=== PATIENT | female | born 1975 | race Caucasian/White ===

== ENCOUNTER 2024-04-20 10:56 | Emergency (ER) | payer OTHER, SELFPAY ==
[2024-04-20 10:59] VITALS: BP 133/82; PULSE 86; RESP 15; TEMP 36.4; O2SAT 99; BMI 23.8
--- NOTE | 2024-04-20 11:19 | EKG12_ITS ---
Test Reason : GENERAL Blood Pressure : / mmHG Vent. Rate : 085 BPM Atrial Rate : 085 BPM P-R Int : 152 ms QRS Dur : 092 ms QT Int : 386 ms P-R-T Axes : 077 071 039 degrees QTc Int : 459 ms Normal sinus rhythm Normal ECG Confirmed by COLT SIMON, CYNTHIA ([id number]), index editor JESSICA KOVACS ([id number]) on 04/21/2024 10:18:44 AM Referred By: Confirmed By:CYNTHIA GREGORY MD
--- NOTE | 2024-04-20 11:19 | EX.ED.VIS.PS ---
HPI HPI - Psych History of Present Illness Chief Complaint: Mental Health Narrative Narrative: 48-year-old female presents with multiple somatic complaints but mainly with what her ears are perceiving as she states things sound warped. This has been ongoing for 6 years. She states that while she is having physical symptoms she is also having psychological problems and stress where her psychological pain is through the roof. However, she denies suicidal ideation, hallucinations, or homicidal ideation. She was able to walk here, and wants to see someone about her physical and psychological ailments as she feels they are intertwined. PFSH PFSH Allergy/AdvReac Type Severity Reaction Status Date / Time No Known Allergies Allergy Verified 04/20/24 11:03 Social History Smoking Status: Current every day smoker tobacco type: cigarettes ROS ROS ED ROS Narrative Constitutional: No fever, no chills. HEENT: No sore throat. No neck pain. No loss of vision. No rhinorrhea. Warped sense of hearing. Cardiovascular: No chest pain. No palpitations. No pedal edema. Respiratory: No cough, no shortness of breath. Abdominal: No abdominal pain. No nausea. No vomiting. Genitourinary: No dysuria. No hematuria. Musculoskeletal: No myalgias. No arthralgias. Neurologic: No headaches. No dizziness. No lightheadedness. Skin: No rash. No change in color. Psychiatric: No depression. No anxiety. EXAM Physical Exam Narrative Exam Narrative: Afebrile. Vital signs noted. HEENT: Normocephalic. Atraumatic. PERRL, EOMI. Neck soft and supple. No point tenderness or step off. Cardiovascular: Regular rate and rhythm. No murmurs, rubs, or gallops appreciated. Respiratory: No tachypnea. Lungs clear to auscultation bilaterally. Gastrointestinal: Abdomen soft, nontender, with normoactive bowel sounds. No rebound or guarding. Neurological: Awake. Alert. Nonfocal, nonlateralizing. Skin: No rash. Normal color. No pallor. Musculoskeletal: No pedal edema. Full range of motion extremities. Psychiatric: Mild flight of ideas. No suicidal ideation, no homicidal ideation. No apparent internal stimulation. Const Vital Signs: 04/20/24 10:59 Temperature 97.6 F L Temperature Source Temporal Pulse Rate 86 Respiratory Rate 15 Blood Pressure 133/82 H Blood Pressure Mean 99 Pulse Ox 99 Oxygen Delivery Method Room Air MDM MDM MDM Narrative Medical decision making narrative: Patient's problems have been ongoing for 6 years. She relates history where she has had MRIs done of her brain, and describes that she was supposed to be set up with a counselor in the past. She told the diesel mechanic helper and review of the triage note she is stuck here and staying in a hotel. Given her flight of ideas and her difficulty in explaining her symptoms, medical clearance labs will be obtained. Will feel she needs a sitter, for that she is necessarily meeting any criteria for 72-hour psychiatric hold. I reviewed her laboratory work and she has normal white count of 9.2, hemoglobin normal at 14.3, platelet 260. Of significance on her CMP is potassium low at 3.2 which will be replaced orally. Glucose is elevated at 136 but she has normal anion gap of 6. LFTs are grossly unremarkable. Serum is negative. At this point in time, I feel she is medically cleared for evaluation by crisis. Patient is in stable condition. After evaluation, and discussion with counselor, was not felt that she needed emergent psychiatric admission. Her last admission to a psychiatric facility was 14 years ago reportedly, and it was a traumatic experience. She is not suicidal, homicidal, or actively hallucinating. It was not felt by the counselor that there is imminent danger to the patient or others. She was contracted for safety. She was given local resources. I feel that she can be discharged to follow-up as an outpatient. Disposition is discharged home in stable condition. History & Record Review Discussion w/independent historian: Patient Lab Data Attestation: I reviewed the patient's lab results. Labs: Laboratory Results - last 24 hr 04/20/24 04/20/24 11:35 12:00 WBC 9.2 RBC 4.61 Hgb 14.3 Hct 41.5 MCV 90.0 MCH 31.0 MCHC 34.5 RDW Std Deviation 41.8 RDW Coeff of Mathieu 12.7 Plt Count 260 MPV 9.8 Immature Gran % (Auto) 0.200 Neut % (Auto) 74.8 H Lymph % (Auto) 16.3 L Sweet Grass % (Auto) 6.1 Eos % (Auto) 2.2 Baso % (Auto) 0.4 Absolute Neuts (auto) 6.8 Absolute Lymphs (auto) 1.49 Nucleated RBC % 0 Sodium 137 Potassium 3.2 L Chloride 103 Carbon Dioxide 28.0 Anion Gap 6 BUN 11 Creatinine 0.72 Estim Creat Clear Calc 93.93 Est GFR (MDRD) Af Amer 112 Est GFR (MDRD) Non-Af 92 BUN/Creatinine Ratio 15.3 Glucose 136 H Calcium 9.0 Total Bilirubin 0.70 AST 33 ALT 19 Alkaline Phosphatase 59 Total Protein 7.4 Albumin 3.9 Globulin 3.5 Albumin/Globulin Ratio 1.1 Serum , Qual NEGATIVE Urine Opiates Screen NEGATIVE Urine Methadone Screen NEGATIVE Ur Barbiturates Screen NEGATIVE Ur Phencyclidine Scrn NEGATIVE Ur Amphetamines Screen NEGATIVE MDMA (Ecstasy) Screen NEGATIVE U Benzodiazepines Scrn NEGATIVE Urine Cocaine Screen NEGATIVE U Cannabinoids Screen NEGATIVE Ur Drug Screen Comment Ethyl Alcohol 4.0 Discharge Plan Triage Chief Complaint: Mental Health ED Provider: Filiberto Crespo Dx/Rx/DC Orders Clinical Impression: Hypokalemia, Psychiatric disorder Instructions: Online Mental Health Support Grp, Journaling for Emotional Wellness, ED Hypokalemia Primary Care Provider: Care Physician,No Primary Referrals: Counseling,Center [Group of Physicians] - As soon as possible Care Physician,No Primary [Primary Care Provider] - Print Language: Faroese Disposition Disposition: Home, Self Care
[2024-04-20 11:47] LABS: Absolute Lymphocyte Count 1.49 X10^3/uL (0.83-4.51); Absolute Neutrophil Count 6.8 X10^3/uL (2.0-7.7); Basophil# 0.04 X10^3/uL; Basophil% 0.4 % (0-1); Eosinophils% 2.2 % (0-5); Hematocrit 41.5 % (37-47); Hemoglobin 14.3 g/dL (12.0-15.0); Lymphocyte # 1.49 X10^3/ul (0.83-4.51); Lymphocyte % 16.3 % (19-41); Mean Corp Hgb Conc 34.5 g/dL (32-36); Mean Platelet Vol. 9.8 fl (6.2-12.0); Monocyte# 0.56 X10^3/uL; Monocyte% 6.1 % (0-10); NRBC Flagged by Analyzer 0 % (0-5); Neutrophil # 6.84 X10^3/uL (2.7-7.7); Neutrophil % 74.8 % (47-70); Platelet Count 260 K/mm3 (150-450); RBC Distribution Width CV 12.7 % (11.6-14.6); RBC Distribution Width SD 41.8 fl (35.1-43.9); Red Blood Count 4.61 M/mm3 (4.2-5.4); White Blood Count 9.2 K/mm3 (4.4-11.0)
[2024-04-20 12:06] LABS: ALB/GLOB Ratio 1.1 RATIO (0.9-2.4); AST(SGOT) 33 U/L (15-37); Alanine Aminotransfer ALT/SGPT 19 U/L (13-56); Albumin, Serum 3.9 g/dL (3.2-5.0); Alkaline Phosphatase 59 U/L (45-117); Anion Gap 6 (5-15); BUN 11 mg/dL (7-18); BUN/Creat Ratio 15.3 RATIO (10-20); Chloride 103 mmol/L (98-107); Creatinine, Serum 0.72 mg/dL (0.55-1.02); EST Glomerular Filtration Rate 92 mL/min (>60); Est Glom Filt Rate - Afr Amer 112 mL/min (>60); Estimated Creatinine Clearance 93.93 ml/min; Globulin 3.5 g/dL (2.2-4.2); Glucose 136 mg/dL (74-106); Potassium 3.2 mmol/L (3.5-5.1); Protein, Total 7.4 g/dL (6.4-8.2); Sodium Level 137 mmol/L (136-145)
[2024-04-20 12:13] LABS: Internal QC Validated? YES +Cl - CLEAR BKGD; Pregnancy, Serum, hCG Quali. NEGATIVE Negative
--- NOTE | 2024-04-20 12:14 | ED.RN ---
chart faxed to [facility]
--- NOTE | 2024-04-20 12:25 | ED.RN ---
chart faxed to [facility]
[2024-04-20 13:23] LABS: Amphetamine Urine VISTA NEGATIVE (<1000 ng/mL); Barbiturate Urine VISTA NEGATIVE (< 200 ng/mL); Benzodiazepine Urine VISTA NEGATIVE (< 200 ng/mL); Cocaine Urine VISTA NEGATIVE (< 300 ng/mL); Ecstacy Urine VISTA NEGATIVE (< 500 ng/mL); Methadone Urine VISTA NEGATIVE (< 300 ng/mL); PCP Urine VISTA NEGATIVE (< 25 ng/mL); THC Urine VISTA NEGATIVE (< 50 ng/mL); Vista UDS pH Range 5
--- NOTE | 2024-04-20 14:18 | NURSING ---
FAXED CHART TO [facility]
[2024-04-20] MEDS: Potassium Chloride Oral Tablet 20 MEQ 40 MEQ PO (14:42)
== END 2024-04-20 15:30 | disposition home or self-care (01) ==
PROVIDERS: Emergency Provider Emergency Medicine; Visit Provider Emergency Medicine
DX: F99 Mental disorder, not otherwise specified (principal); E87.6 Hypokalemia; F17.210 Nicotine dependence, cigarettes, uncomplicated; Z63.0 Problems in relationship with spouse or partner; Z63.4 Disappearance and death of family member; Z91.411 Personal history of adult psychological abuse
CPT/HCPCS: 80053; 80307; 82077; 84703; 85025; 93005; 99284